=== PATIENT | female | born 2000 | race American Indian/Alaskan Native ===

== ENCOUNTER 2022-01-11 16:59 | Emergency (ER) | payer SELFPAY ==
[2022-01-11 17:13] VITALS: BP 181/109
[2022-01-11] MEDS ORDERED: ACETAMINOPHEN 500 MG TAB PO ONE (19:58)
[2022-01-11 20:49] LABS: Basophils # (Auto) 0.1 K/mm3 (0.0-0.1); Basophils % (Auto) 0.5 % (0.0-1.8); Eosinophils % (Auto) 0.2 % (0.0-4.3); Lymphocytes # (Auto) 1.6 K/mm3 (1.2-5.4); Lymphocytes % (Auto) 14.3 % (13.4-35.0); Mean Corpuscular HGB Conc 33 % (30-34); Mean Corpuscular Volume 92 fl (79-97); Monocytes % (Auto) 9.1 % (0.0-7.3); Platelet Count 229 K/mm3 (140-440); Red Blood Count 4.35 M/mm3 (3.65-5.03); Red Cell Distribution Width 14.5 % (13.2-15.2)
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
[2022-01-11 21:08] LABS: Alanine Aminotransferase 13 units/L (7-56); Albumin 4.6 g/dL (3.9-5); Blood Urea Nitrogen 8 mg/dL (7-17); Calcium 9.6 mg/dL (8.4-10.2); Hemolysis Index 4
[2022-01-11 21:20] LABS: BUN/Creatinine Ratio 11
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
--- NOTE | 2022-01-12 00:07 | Ultrasound Report ---
ULTRASOUND OBSTETRIC REASON FOR EXAM: abd pos preg TECHNIQUE: Transabdominal and transvaginal ultrasound was performed to evaluate a first trimester pre gnancy. COMPARISON: None available. FINDINGS: FINDINGS: The pole, yolk sac, and gestational sac are normal in appearance. [place]-rump length: 2.3 mm. This corresponds with a gestational age of 6 weeks 4 days. heart rate: 117 bpm Perigestational hemorrhage: No evidence of perigestational hemorrhage on the provided images. MATERNAL FINDINGS: The uterus demonstrates an otherwise unremarkable sonographic appearance. The right ovary demonstrates a normal sonographic appearance. The left ovary demonstrates a normal sonographic appearance. Cul-de-sac: There is no free fluid. IMPRESSION: Viable intrauterine . Gestational age is 6 weeks 4 days by ultrasound. Recommend clinical sc reening and ultrasound follow-up in the second trimester to screen for anomalies. Signer Name: Jayro Henderson MD Signed: 01/12/2022 12:03 AM Workstation Name: [id number]
== END 2022-01-12 00:42 | disposition home or self-care (01) ==
LOC: ED 16:59
DX: O9A.211 Injury, poisoning and certain other consequences of external causes complicating pregnancy, first trimester (principal); S16.1XXA Strain of muscle, fascia and tendon at neck level, initial encounter; O26.891 Other specified pregnancy related conditions, first trimester; R51.9 Headache, unspecified; Z3A.01 Less than 8 weeks gestation of pregnancy; Z79.899 Other long term (current) drug therapy; Y04.8XXA Assault by other bodily force, initial encounter; Y93.89 Activity, other specified; Y92.89 Other specified places as the place of occurrence of the external cause; Y99.8 Other external cause status
CPT/HCPCS: 36415; 70140; 76801; 80053; 84702; 85025; 99284